=== PATIENT | female | born 1985 | race Two or more races ===

== ENCOUNTER 2018-03-07 12:31 | Emergency (ER) | payer MEDICAID, OTHER ==
[~2018-03-07] VITALS: Ht 160 cm; Wt 61.2 kg
[2018-03-07 12:46] VITALS: BP 109/44
== END 2018-03-07 16:00 | disposition home or self-care (01) ==
LOC: ER 12:40
DX: S92.512A Displaced fracture of proximal phalanx of left lesser toe(s), initial encounter for closed fracture (principal); M32.9 Systemic lupus erythematosus, unspecified; W22.8XXA Striking against or struck by other objects, initial encounter; Y93.89 Activity, other specified; Y99.8 Other external cause status; Y92.89 Other specified places as the place of occurrence of the external cause
CPT/HCPCS: 73630; 99283; L3260

== ENCOUNTER 2024-05-11 16:30 | Emergency (ER) | payer SELFPAY, OTHER ==
[~2024-05-11] VITALS: Ht 162.6 cm; Wt 56.8 kg
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
[2024-05-11] MEDS ORDERED: IBUP1TAB5 PO (17:31)
[2024-05-11] MEDS ORDERED: TRAM50TA2 PO (17:31)
[2024-05-11] MEDS ORDERED: BACIOIN15 TOP (17:31)
[2024-05-11] MEDS: IBUPROFEN 600 MG TAB PO ONE (18:22)
[2024-05-11 18:23] VITALS: BP 125/80; PULSE 60; RESP 18; TEMP 98.3; O2SAT 96
== END 2024-05-11 18:36 | disposition home or self-care (01) ==
LOC: ER 16:30 → EDBD 16:30 → EDUNIT# 16:30 → ER 18:36
DX: S80.211A Abrasion, right knee, initial encounter (principal); S80.212A Abrasion, left knee, initial encounter; S50.811A Abrasion of right forearm, initial encounter; S60.811A Abrasion of right wrist, initial encounter; R51.9 Headache, unspecified; Z79.899 Other long term (current) drug therapy; V89.2XXA Person injured in unspecified motor-vehicle accident, traffic, initial encounter; Y93.89 Activity, other specified; Y92.488 Other paved roadways as the place of occurrence of the external cause; Y99.8 Other external cause status
CPT/HCPCS: 73090; 73562